=== PATIENT | male | born 1960 | race Caucasian/White ===

== ENCOUNTER 2022-03-22 10:17 | Inpatient (IN) | payer SELFPAY ==
[~2022-03-22] VITALS: Ht 187 cm; Wt 103.4 kg
--- NOTE | 2022-03-22 10:53 | ED Neurological Problem ---
General Chief Complaint: Neurological Problems Stated Complaint: SLURRED SPEACH, LOSS OF BALANCE Nursing Triage Note: PT AMB TO RM 2 PT CO OF R SIDED FACIAL WEAKNESS, SLURRING OF SPEECH. NO WEAKNESS NOTED IN EXT. DENIES NUMBNESS. PT STATES SX STARTED ON Tuesday03/18/22 LAST WEEK. DENIES PAIN. PT STATES HAD COVID APPROX 1 MONTH AGO Source: patient Exam Limitations: no limitations History of Present Illness Date Seen by Provider: Mar 22, 2022 Time Seen by Provider: 10:49 Initial Comments To ER by private vehicle with reports of slurred speech, drooping on the right side of his face, liquids dripping out the right side of his face, unsteady gait drifting to the right side when he walks. This began on , 03/18/2022. The gait abnormality has completely resolved back to normal. However, the slurred speech and drooling of the right side of his mouth persists. His sister had a stroke at the age of 56. He does not smoke or drink or use any drugs. Follows with Dr. Hess. He has hypertension managed with chlorthalidone and lisinopril and he is diabetic managed with Levemir and insulin aspart. Timing/Duration: 1 week Severity: moderate Associated Symptoms: slurred speech, trouble walking; No vision changes, No weakness Allergies and Home Medications Allergies Coded Allergies: No Known Drug Allergies (Unverified , 03/22/22) Patient Home Medication List Home Medication List Reviewed: Yes Review of Systems Review of Systems Constitutional: see HPI Eyes: No Symptoms Reported Ears, Nose, Mouth, Throat: see HPI Respiratory: no symptoms reported Cardiovascular: no symptoms reported Musculoskeletal: no symptoms reported Skin: no symptoms reported Psychiatric/Neurological: See HPI Endocrine: No Symptoms Reported Physical Exam Vital Signs Vital Signs - First Documented 03/22/22 10:42 Temp 35.9 Pulse 93 Resp 11 B/P (MAP) 225/146 (172) Capillary Refill : Less Than 3 Seconds Height, Weight, BMI Height: '" Weight: lbs. oz. kg; 30.00 BMI Method: General Appearance: WD/WN, no apparent distress, other (Alert oriented GCS 15 very pleasant. Quite hypertensive 225/140. Heart rate 90 sinus.) HEENT: PERRL/EOMI, normal ENT inspection, other (Lower half of the right side of his face does have some minor paralysis. Eyebrow movement and ability to wrinkle his eyebrows/forehead is symmetric suggesting supranuclear rather than facial nerve lesion) Respiratory: no respiratory distress, no accessory muscle use Cardiovascular: regular rate, rhythm, no murmur Gastrointestinal: normal bowel sounds, non tender, soft Extremities: normal range of motion, non-tender Neurologic/Psychiatric: alert, normal mood/affect, oriented x 3 Cra[place] Nerves: normal hearing, PERRL, facial asymmetry, facial droop; No gaze palsy Coordination/Gait: normal finger to nose, normal gait Motor/Sensory: no sensory deficit, no pronator drift Skin: normal color, warm/dry Stroke Onset of Symptoms Date of Onset of Symptoms: Mar 18, 2022 Onset of Symptoms: Yes NIH Stroke Scale Assessment Select: Initial Level of Consciousness: 0=Alert (0), Level of Consciousness- Questions: 0=Answers both month/age (0), LOC Commands: 0=Performs both tasks (0), Gaze: Normal (0), Visual Greene: 0=No visual loss (0), Facial Movement (Facial Paresis): 1=Minor paralysis (1), Motor Function-Arms Right: 0=No drift (0), Motor Function-Arms Left: 0=No drift (0), Motor Function-Legs Right: 0=No drift (0), Motor Function-Legs Left: 0=No drift (0), Limb Ataxia: 0=Absent (0), Sensory: 0=Normal:no loss (0), Best Language: 0=No aphasia (0), Dysarthria: 1=Mild to moderate loss (1), Extinction & Inattention: 0=No abnormality (0), Total: 2 Stroke Thrombolytic Exclusion Age 18 or Over: No Acute intenal hemorrhage: No History of CVA: No Uncontrolled Coagulation Defec: No Intracranial Hemorrhage: No Severe Hypertension: Yes GI or Bleed: No Subarachnoid Hemorrhage: No Intracranial Neoplasm/Aneurysm: No Oral Anticoagulants: No Surgery or Trauma: No Puncture of Non-Compressible V: No Recent CPR: No Diabetic Hemorrhagic Retinopat: No Organ Biopsy: No Recent Obstetric Delivery: No Glucose: No Significant Hepatic Dysfunctio: No NIH Stoke Scale >22: No Bacterial Endocarditis: No Pericarditis: No Improving Symptoms: Yes Platelets: No TPA Contraindication: Yes Progress/Results/Core Measures Results/Orders Lab Results Laboratory Tests Test 03/22/22 10:25 03/22/22 12:20 Range/Units White Blood Count 7.9 4.3-11.0 10^3/uL Red Blood Count 5.58 H 4.30-5.52 10^6/uL Hemoglobin 15.5 13.3-17.7 g/dL Hematocrit 46 40-54 % Mean Corpuscular Volume 82 80-99 fL Mean Corpuscular Hemoglobin 28 25-34 pg Mean Corpuscular Hemoglobin Concent 34 32-36 g/dL Red Cell Distribution Width 12.9 10.0-14.5 % Platelet Count 271 130-400 10^3/uL Mean Platelet Volume 11.1 9.0-12.2 fL Immature Granulocyte % (Auto) 0 % Neutrophils (%) (Auto) 58 42-75 % Lymphocytes (%) (Auto) 32 12-44 % Monocytes (%) (Auto) 8 0-12 % Eosinophils (%) (Auto) 1 0-10 % Basophils (%) (Auto) 1 0-10 % Neutrophils # (Auto) 4.6 1.8-7.8 10^3/uL Lymphocytes # (Auto) 2.5 1.0-4.0 10^3/uL Monocytes # (Auto) 0.7 0.0-1.0 10^3/uL Eosinophils # (Auto) 0.1 0.0-0.3 10^3/uL Basophils # (Auto) 0.0 0.0-0.1 10^3/uL Immature Granulocyte # (Auto) 0.0 0.0-0.1 10^3/uL Sodium Level 137 135-145 MMOL/L Potassium Level 3.7 3.6-5.0 MMOL/L Chloride Level 100 98-107 MMOL/L Carbon Dioxide Level 20 L 21-32 MMOL/L Anion Gap 17 H 5-14 MMOL/L Blood Urea Nitrogen 19 H 7-18 MG/DL Creatinine 1.32 H 0.60-1.30 MG/DL Estimat Glomerular Filtration Rate 62 BUN/Creatinine Ratio 14 Glucose Level 385 H 70-105 MG/DL Calcium Level 9.9 8.5-10.1 MG/DL Corrected Calcium 9.6 8.5-10.1 MG/DL Total Bilirubin 0.6 0.1-1.0 MG/DL Aspartate Amino Transf (AST/SGOT) 18 5-34 U/L Alanine Aminotransferase (ALT/SGPT) 20 0-55 U/L Alkaline Phosphatase 76 40-136 U/L Troponin I 0.033 H <0.028 NG/ML Total Protein 7.9 6.4-8.2 GM/DL Albumin 4.4 3.2-4.5 GM/DL Urine Color YELLOW Urine Clarity CLEAR Urine pH 5.5 5-9 Urine Specific [place] 1.020 1.016-1.022 Urine Protein NEGATIVE NEGATIVE Urine Glucose (UA) 3+ H NEGATIVE Urine Ketones NEGATIVE NEGATIVE Urine Nitrite NEGATIVE NEGATIVE Urine Bilirubin NEGATIVE NEGATIVE Urine Urobilinogen 0.2 < = 1.0 MG/DL Urine Leukocyte Esterase NEGATIVE NEGATIVE Urine RBC (Auto) NEGATIVE NEGATIVE Urine RBC 2-5 H /HPF Urine WBC NONE /HPF Urine Crystals NONE /LPF Urine Bacteria NEGATIVE /HPF Urine Casts NONE /LPF Urine Mucus NEGATIVE /LPF Urine Culture Indicated NO My Orders Orders - ELIA BANKS APRN Cbc With Automated Diff (03/22/22 10:46) Protime With Inr (03/22/22 10:46) Partial Thromboplastin Time (03/22/22 10:46) Comprehensive Metabolic Panel (03/22/22 10:46) Fibrin Degradation Products (03/22/22 10:46) Troponin I [place] (03/22/22 10:46) Ua Culture If Indicated (03/22/22 10:46) Chest 1 View, Ap/Pa Only (03/22/22 10:46) Ekg Tracing (03/22/22 10:46) Accucheck Stat ONCE (03/22/22 10:46) Ed Iv/Invasive Line Start (03/22/22 10:46) Ed Iv/Invasive Line Start (03/22/22 10:46) Vital Signs Stroke Patient Q15M (03/22/22 10:46) O2 (03/22/22 10:46) Intake & Output 06,14,22 (03/22/22 10:46) Monitor-Rhythm Ecg Trace Only (03/22/22 10:46) Dysphagia Screening Tool Q10MX1 (03/22/22 10:46) Post Thrombolytic Adminstratio (03/22/22 10:46) Lipid Panel (03/23/22 06:00) Ct Angio Head/Neck (03/22/22 10:46) Metoprolol Tartrate Injection (Lopressor (03/22/22 11:00) Clonidine Tablet (Catapres Tablet) (03/22/22 11:00) Iohexol Injection (Omnipaque 350 Mg/Ml 1 (03/22/22 11:00) Received Contrast (Hold Metformin- Contr (03/22/22 11:00) Ns (Ivpb) (Sodium Chloride 0.9% Ivpb Bag (03/22/22 11:00) Sodium Chloride Flush (Catheter Flush Sy (03/22/22 11:00) Ns Iv 1000 Ml (Sodium Chloride 0.9%) (03/22/22 11:45) Mri Brain W/O Contrast (03/22/22 12:53) Medications Given in ED Current Medications Medications Dose Ordered Sig/Mary Route Start Time Stop Time Status Last Admin Dose Admin Clonidine HCl 0.1 mg ONCE ONCE PO 03/22/22 11:00 03/22/22 11:01 DC 03/22/22 11:05 0.1 MG Iohexol 100 ml ONCE ONCE IV 03/22/22 11:00 03/22/22 11:01 DC 03/22/22 12:14 75 ML Metoprolol Tartrate 5 mg ONCE ONCE IV 03/22/22 11:00 03/22/22 11:01 DC 03/22/22 11:05 5 MG Sodium Chloride 10 ml NEEDED PRN IV 03/22/22 11:00 03/22/22 12:14 10 ML Sodium Chloride 100 ml ONCE ONCE IV 03/22/22 11:00 03/22/22 11:01 DC 03/22/22 12:14 80 ML Vital Signs/I&O 03/22/22 10:42 Temp 35.9 Pulse 93 Resp 11 B/P (MAP) 225/146 (172) Blood Pressure Mean: 172 Departure Communication (Admissions) Family Conversation NAME: [facility] REC#: [id number] PT STATUS: REG ER : 1960 PHYSICIAN: ELIA BANKS APRN ADMIT DATE: 03/22/22/ER Draft Date of Exam:03/22/22 CHEST 1 VIEW, AP/PA ONLY INDICATION: Weakness and slurring of speech in patient with recent Covid infection. Single AP view of the chest is obtained. COMPARISON: No previous study is available for comparison at this time. FINDINGS: Heart size and pulmonary vasculature are within normal limits, and the lungs are clear, bilaterally. IMPRESSION: Unremarkable chest. Dictated on workstation # [id number] Dict: 03/22/22 1241 Trans: 03/22/22 1247 [id number] Interpreted by: MIKE CARD MD Electronically signed by: NAME: [facility] REC#: [id number] PT STATUS: REG ER : 1960 PHYSICIAN: ELIA BANKS LAYER OFF ADMIT DATE: 03/22/22/ER Draft Date of Exam:03/22/22 CT ANGIO HEAD/NECK PROCEDURE: CT angiography of the head and CT angiography of the neck with and without contrast. TECHNIQUE: Contiguous noncontrast images were obtained from the skull base through the vertex. After intravenous contrast administration, helical CT angiography of the neck was performed. Source data was reformatted into 3D MIP projections. Delayed post contrast acquisition was also obtained. Auto Exposure Controls were utilized during the CT exam to meet ALARA standards for radiation dose reduction. INDICATION: Acute onset slurred speech CT HEAD: CT images of the head were obtained. FINDINGS: Ventricles and sulci are within normal limits for size. There is no intracranial hemorrhage identified. There is no abnormal mass effect or shift of midline structures. There are focal lucencies present within the left basal ganglia and thalamus which may be the result of old lacunar infarcts. IMPRESSION: Unremarkable CT of the head. MRI has greater sensitivity for infarct in the acute setting. CTA head and neck: There is a normal three-vessel branching pattern arising from the aortic arch. There is [id number] atherosclerotic calcification at the carotid bifurcation, greater on the left. This results in no significant stenosis or occlusion. There is no intimal abnormality. Both vertebral arteries are patent throughout the neck. Anterior, middle and posterior cerebral arteries are patent without evidence of filling defect. There is no evidence of focal stenosis. No aneurysm or vascular malformation is identified. There may be origin of the left posterior cerebral artery. IMPRESSION: No CTA evidence of great vessel abnormality in the head or neck. There is mild atherosclerotic calcification at the carotid bifurcation, greater on the left. Dictated on workstation # [id number] Dict: 03/22/22 1243 Trans: 03/22/22 1251 [id number] Interpreted by: MIKE CARD MD Electronically signed by: [id number] score of 2, one-point for dysarthria, one-point for facial asymmetry. Not a tPA candidate given timeframe, improving symptoms, severe hypertension. BP at this time 225/143, HR 90 1132-BP 193/113 1307-heart rate 70s sinus. NIH remains the same. Mother at the bedside and agrees with the slurred speech and there is still noticeable right lower half of his face drooping. Current blood pressure 137/98. CT angio fails to demon strate evidence of infarct, significant stenosis or large vessel occlusion. We will get MRI. We will get an echocardiogram. Will admit to Dr. Mancia and consult Dr. Diaz from cardiology. I spoke with him, we will get an echocardiogram and start him on Toprol-XL 100 mg daily. Impression Primary Impression: Hypertensive emergency Additional Impression: CVA (cerebral vascular accident) Disposition: ADMITTED INPATIENT Condition: Stable Admissions Decision to Admit Reason: Admit from ER (General) Decision to Admit/Date: Mar 22, 2022 Time/Decision to Admit Time: 13:11 Departure-Patient Inst. Referrals: [facility]/ (PCP) Primary Care Physician ELIA BANKS APRN Mar 22, 2022 10:53
[2022-03-22 10:58] LABS: BASOPHILS % (AUTO) 1 % (0-10); EOSINOPHILS # (AUTO) 0.1 10^3/uL (0.0-0.3); EOSINOPHILS % (AUTO) 1 % (0-10); HEMATOCRIT 46 % (40-54); HEMOGLOBIN 15.5 g/dL (13.3-17.7); LYMPHOCYTES # (AUTO) 2.5 10^3/uL (1.0-4.0); LYMPHOCYTES % (AUTO) 32 % (12-44); MEAN CORPUSCULAR HEMOGLOBIN 28 pg (25-34); MEAN CORPUSCULAR HGB CONC 34 g/dL (32-36); MEAN CORPUSCULAR VOLUME 82 fL (80-99); MEAN PLATELET VOLUME 11.1 fL (9.0-12.2); MONOCYTES # (AUTO) 0.7 10^3/uL (0.0-1.0); MONOCYTES % (AUTO) 8 % (0-12); NEUTROPHILS # (AUTO) 4.6 10^3/uL (1.8-7.8); NEUTROPHILS % (AUTO) 58 % (42-75); PLATELET COUNT 271 10^3/uL (130-400); WHITE BLOOD COUNT 7.9 10^3/uL (4.3-11.0)
[2022-03-22] MEDS ORDERED: HOLD METFORMIN - RECEIVED CONTRAST 20 ML VIAL IV SCH (11:00)
[2022-03-22] MEDS ORDERED: CATHETER FLUSH 10 ML SYR IV PRN (11:00)
[2022-03-22] MEDS ORDERED: cloNIDine 0.1 MG (CATAPRES) TAB PO ONE (11:00)
[2022-03-22] MEDS ORDERED: NS 100 ML (IVPB) BAG IV ONE (11:00)
[2022-03-22] MEDS ORDERED: IOHEXOL 350 MG/ML 100 ML (OMNIPAQUE 350) VIAL IV ONE (11:00)
[2022-03-22] MEDS ORDERED: meTOprolol 5 MG/5 ML (LOPRESSOR) VIAL IV ONE (11:00)
[2022-03-22 11:05] LABS: ALBUMIN 4.4 GM/DL (3.2-4.5)
[2022-03-22 11:06] LABS: POTASSIUM 3.7 MMOL/L (3.6-5.0)
[2022-03-22 11:07] LABS: CALCIUM 9.9 MG/DL (8.5-10.1)
[2022-03-22 11:08] LABS: TOTAL PROTEIN 7.9 GM/DL (6.4-8.2)
[2022-03-22 11:10] LABS: BILIRUBIN,TOTAL 0.6 MG/DL (0.1-1.0)
[2022-03-22 11:12] LABS: CREATININE SERUM 1.32 MG/DL (0.60-1.30)
[2022-03-22] MEDS ORDERED: NS IV 1000 ML 1,000 ML IV SCH (11:45)
[2022-03-22 12:30] LABS: BILIRUBIN,URINE NEGATIVE (NEGATIVE); CLARITY,URINE CLEAR; COLOR,URINE YELLOW; GLUCOSE, URINE (UA) 3+ (NEGATIVE); KETONES,URINE NEGATIVE (NEGATIVE); LEUKOCYTE ESTERASE ,URINE NEGATIVE (NEGATIVE); NITRITE,URINE NEGATIVE (NEGATIVE); PH,URINE 5.5 (5-9); PROTEIN,URINE NEGATIVE (NEGATIVE)
--- NOTE | 2022-03-22 12:48 | Diagnostic Imaging Report ---
INDICATION: Weakness and slurring of speech in patient with recent Covid infection. Single AP view of the chest is obtained. COMPARISON: No previous study is available for comparison at this time. FINDINGS: Heart size and pulmonary vasculature are within normal limits, and the lungs are clear, bilaterally. IMPRESSION: Unremarkable chest. Dictated by: Dictated on workstation # [id number]
--- NOTE | 2022-03-22 12:51 | Diagnostic Imaging Report ---
PROCEDURE: CT angiography of the head and CT angiography of the neck with and without contrast. TECHNIQUE: Contiguous noncontrast images were obtained from the skull base through the vertex. After intravenous contrast administration, helical CT angiography of the neck was performed. Source data was reformatted into 3D MIP projections. Delayed post contrast acquisition was also obtained. Auto Exposure Controls were utilized during the CT exam to meet ALARA standards for radiation dose reduction. INDICATION: Acute onset slurred speech CT HEAD: CT images of the head were obtained. FINDINGS: Ventricles and sulci are within normal limits for size. There is no intracranial hemorrhage identified. There is no abnormal mass effect or shift of midline structures. There are focal lucencies present within the left basal ganglia and thalamus which may be the result of old lacunar infarcts. IMPRESSION: Unremarkable CT of the head. MRI has greater sensitivity for infarct in the acute setting. CTA head and neck: There is a normal three-vessel branching pattern arising from the aortic arch. There is [id number] atherosclerotic calcification at the carotid bifurcation, greater on the left. This results in no significant stenosis or occlusion. There is no intimal abnormality. Both vertebral arteries are patent throughout the neck. Anterior, middle and posterior cerebral arteries are patent without evidence of filling defect. There is no evidence of focal stenosis. No aneurysm or vascular malformation is identified. There may be origin of the left posterior cerebral artery. IMPRESSION: No CTA evidence of great vessel abnormality in the head or neck. There is mild atherosclerotic calcification at the carotid bifurcation, greater on the left. Dictated by: Dictated on workstation # [id number]
[2022-03-22 12:52] LABS: BACTERIA,URINE NEGATIVE /HPF
[2022-03-22 13:46] LABS: FIBRIN DEGRADATION PRODUCTS 1.04 UG/ML (0.00-0.49); INR 0.9 (0.8-1.4); PROTHROMBIN TIME PATIENT 12.9 SEC (12.2-14.7)
[2022-03-22] MEDS ORDERED: MELATONIN 3 MG TABLET PO PRN (14:00)
[2022-03-22] MEDS ORDERED: diphenhydrAMINE 50 MG/ML INJ (BENADRYL) IVP PRN (14:00)
[2022-03-22] MEDS ORDERED: polyethylene glycoL POWDER 17 GM (MIRALAX) PACK PO PRN (14:00)
[2022-03-22] MEDS ORDERED: ONDANSETRON 4 MG/2 ML (SDV) Z0FRAN IV PRN (14:00)
[2022-03-22] MEDS ORDERED: diphenhydrAMINE 25 MG TAB (BENADRYL) PO PRN (14:00)
[2022-03-22] MEDS ORDERED: morphine INJ 4 MG/ML 1 ML (VIAL/SYRINGE) IV PRN (14:00)
[2022-03-22] MEDS ORDERED: ONDANSETRON 4 MG (ZOFRAN) ORAL DISSOLVE TAB PO PRN (14:00)
[2022-03-22] MEDS ORDERED: BISACODYL 10 MG SUPP (DULCOLAX) PR PRN ×2 (14:00)
[2022-03-22] MEDS ORDERED: cloNIDine 0.1 MG (CATAPRES) TAB PO PRN (14:00)
[2022-03-22] MEDS ORDERED: ANTACID SUSP 30 ML UDC (MYLANTA) PO PRN (14:00)
[2022-03-22] MEDS ORDERED: MILK OF MAGNESIA 400 MG/5 ML 30 ML UDC PO PRN ×2 (14:00)
[2022-03-22] MEDS ORDERED: amLODIPine 5 MG (NORVASC) TAB PO NR (14:00)
[2022-03-22] MEDS ORDERED: CALCIUM CARBONATE 500 MG (TUMS) TAB.CHEW PO PRN (14:00)
[2022-03-22] MEDS ORDERED: LACTULOSE SYRUP 10GM/15ML (ENULOSE) 30ML UDC PO PRN (14:00)
[2022-03-22] MEDS ORDERED: ACETAMINOPHEN 325 MG TABLET PO PRN (14:00)
--- NOTE | 2022-03-22 14:09 | Consultation-Cardiology ---
HPI-Cardiology Cardiology Consultation: Date of Consultation 03/22/22 Time Seen by a Provider: 14:20 Date of Admission 03-22-22 Attending Physician [facility] Admitting Physician Admitting Physician: Rachel Mancia DO Attending Physician: Rachel Mancia DO Consulting Physician Donita Diaz MD HPI: Chief Complaint: Cryptogenic CVA Uncontrolled HTN Mr. Santos is a 62 yr old male admitted to 512 from the ED. He reports last week he was outside working on mower when he developed dizziness, weakness, slurring of his words and some left sided facial droop. He states he felt as though his legs were weak and "not working right". He reports the leg weakness improved after a few days, but the slurring and facial droop persisted. He denies any visual changes. He denies any CP, palpitations, syncope or near syncope. No c/o LE swelling. He reports he did have near syncopal episodes in the past when he was 6 blood pressure pills which was associated with position changes. He states this has improved since he reduced his medications. He reports he has whit coat HTN along with hypertension. He reports he takes chlorthalidone and lisinopril for HTN daily. He reports he smokes marijuana on a daily basis. He reports he previously was a heavy drinker, but has not drank heavily in years. Review of Systems-Cardiology Review of Systems Constitutional: No chills, No fever; lightheadedness Eyes: No vision change Ears/Nose/Throat: No epistaxis, No recent hearing loss Respiratory: As described under HPI Cardiovascular: As described under HPI Gastrointestinal: No constipation, No diarrhea, No nausea, No vomiting Genitourinary: No dysuria Skin: No rash on exposed areas; ulcerations on exposed areas Psychiatric/Neurological: As described under HPI, anxiety Hematologic: No bleeding abnormalities OVQ-Mnmqns-Hakjmw Hx Patient Social History Have you traveled recently?: No Alcohol Use?: No Substance type: Marijuana Pt feels they are or have been: No Past Medical History PMH As described under Assessment. Family Medical History Family Medical History: He reports a sister who had a stroke. Allergies and Home Medications Allergies Coded Allergies: atorvastatin (Verified Adverse Reaction, Unknown, 03/22/22) MUSCLE ACHES Patient Home Medication List Chlorthalidone (Chlorthalidone) 25 Mg Tablet, 25 MG PO DAILY, (Reported) Entered as Reported by: CANDY MULU on 03/22/221513 Last Action: Reviewed Insulin Aspart (Insulin Aspart Flexpen) 100 Unit/Ml (3 Ml) Insuln.pen, 20 UNIT SQ AC, (Reported) Entered as Reported by: CANDY HARDWICK on 03/22/221513 Last Action: Reviewed Insulin Detemir (Levemir Flextouch) 100 Unit/Ml (3 Ml) Insuln.pen, 50 UNIT SQ BI D, (Reported) Entered as Reported by: CANDY HARDWICK on 03/22/221513 Last Action: Reviewed Lisinopril (Lisinopril) 40 Mg Tablet, 20-40 MG PO DAILY PRN for BLOOD PRESSURE, (Reported) Entered as Reported by: CANDY HARDWICK on 03/22/221513 Last Action: Reviewed Sertraline HCl (Sertraline HCl) 100 Mg Tablet, 100 MG PO DAILY, (Reported) Entered as Reported by: CANDY HARDWICK on 03/22/221513 Last Action: Reviewed Sertraline HCl (Sertraline HCl) 100 Mg Tablet, 50 MG PO DAILY PRN for ANXIETY/STRESS, (Reported) Entered as Reported by: CANDY HARDWICK on 03/22/221513 Last Action: Reviewed Physical Exam-Cardiology Physical Exam Vital Signs/I&O 03/23/22 03/23/22 03/23/22 03/23/22 00:00 00:25 01:00 04:00 Pulse 72 64 Resp 17 B/P (MAP) 137/90 (106) Pulse Ox 95 96 O2 Delivery Room Air Room Air Room Air 03/23/22 03/23/22 03/23/22 04:23 07:00 07:53 Temp 36.4 Pulse 64 77 68 Resp 26 B/P (MAP) 153/99 (134) 153/99 (117) Pulse Ox 96 O2 Delivery Room Air 03/23/22 00:00 Intake Total 450 ml Balance 450 ml Capillary Refill : Less Than 3 Seconds Constitutional: AAO x 3, well-developed, well-nourished, other (slightly slurred speech; faint right sided facial droop) HEENT: PERRL, hearing is well preserved, oral hygience is good Neck: No carotid bruit; carotid pulses are 2 + bilaterally Respiratory: No accessory muscle use, No respiratory distress; chest expansion is symmetric, chest is bilaterally symmetric, lungs clear to auscultation Cardiovascular: regular rate-rhythm; No JVD; S1 and S2 Gastrointestinal: No tender; soft, round, audible bowel sounds Extremities: no lower extremity edema bilateral Neurologic/Psychiatric: grossly intact (moves all extremities) Skin: No rash on exposed areas, No ulcerations on exposed areas Data Review Labs Laboratory Tests 03/22/22 10:25: White Blood Count 7.9, Red Blood Count 5.58H, Hemoglobin 15.5, Hematocrit 46, Mean Corpuscular Volume 82, Mean Corpuscular Hemoglobin 28, Mean Corpuscular Hemoglobin Concent 34, Red Cell Distribution Width 12.9, Platelet Count 271, Mean Platelet Volume 11.1, Immature Granulocyte % (Auto) 0, Neutrophils (%) (Auto) 58, Lymphocytes (%) (Auto) 32, Monocytes (%) (Auto) 8, Eosinophils (%) (Auto) 1, Basophils (%) (Auto) 1, Neutrophils # (Auto) 4.6, Lymphocytes # (Auto) 2.5, Monocytes # (Auto) 0.7, Eosinophils # (Auto) 0.1, Basophils # (Auto) 0.0, Immature Granulocyte # (Auto) 0.0, Prothrombin Time 12.9, INR Comment 0.9, Activated Partial Thromboplast Time 31, D-Dimer 1.04H, Sodium Level 137, Potassium Level 3.7, Chloride Level 100, Carbon Dioxide Level 20L, Anion Gap 17H , Blood Urea Nitrogen 19H, Creatinine 1.32H, Estimat Glomerular Filtration Rate 62, BUN/Creatinine Ratio 14, Glucose Level 385H, Calcium Level 9.9, Corrected Calcium 9.6, Total Bilirubin 0.6, Aspartate Amino Transf (AST/SGOT) 18, Alanine Aminotransferase (ALT/SGPT) 20, Alkaline Phosphatase 76, Troponin I 0.033H, Total Protein 7.9, Albumin 4.4 03/22/22 12:20: Urine Color YELLOW, Urine Clarity CLEAR, Urine pH 5.5, Urine Specific [place] 1.020, Urine Protein NEGATIVE, Urine Glucose (UA) 3+H, Urine Ketones NEGATIVE, Urine Nitrite NEGATIVE, Urine Bilirubin NEGATIVE, Urine Urobilinogen 0.2, Urine Leukocyte Esterase NEGATIVE, Urine RBC (Auto) NEGATIVE, Urine RBC 2-5H, Urine WBC NONE, Urine Crystals NONE, Urine Bacteria NEGATIVE, Urine Casts NONE, Urine Mucus NEGATIVE, Urine Culture Indicated NO 03/22/22 17:23: Glucometer 200H 03/22/22 21:24: Glucometer 280H 03/23/22 04:50: White Blood Count 7.0, Red Blood Count 5.16, Hemoglobin 14.5, Hematocrit 43, Mean Corpuscular Volume 84, Mean Corpuscular Hemoglobin 28, Mean Corpuscular Hemoglobin Concent 34, Red Cell Distribution Width 12.9, Platelet Count 229, Mean Platelet Volume 10.8, Immature Granulocyte % (Auto) 0, Neutrophils (%) (Auto) 45, Lymphocytes (%) (Auto) 41, Monocytes (%) (Auto) 10, Eosinophils (%) (Auto) 3, Basophils (%) (Auto) 1, Neutrophils # (Auto) 3.2, Lymphocytes # (Auto) 2.9, Monocytes # (Auto) 0.7, Eosinophils # (Auto) 0.2, Basophils # (Auto) 0.1, Immature Granulocyte # (Auto) 0.0, Sodium Level 138, Potassium Level 3.8, Chloride Level 101, Carbon Dioxide Level 21, Anion Gap 16H, Blood Urea Nitrogen 22H, Creatinine 1.35H, Estimat Glomerular Filtration Rate 60, BUN/Creatinine Ratio 16, Glucose Level 242H, Calcium Level 9.4, Corrected Calcium 9.5, Total Bilirubin 0.4, Aspartate Amino Transf (AST/SGOT) 19, Alanine Aminotransferase (ALT/SGPT) 19, Alkaline Phosphatase 66, Total Protein 7.3, Albumin 3.9, Triglycerides Level 421H, Cholesterol Level 233H, LDL Cholesterol Direct 142H, VLDL Cholesterol 84H, HDL Cholesterol 25L 03/23/22 06:30: Glucometer 249H Radiology NAME: CLINTON SANTOS [facility] REC#: [id number] PT STATUS: REG ER : 1960 PHYSICIAN: ELIA BANKS APRN ADMIT DATE: 03/22/22/ER Draft Date of Exam:03/22/22 CHEST 1 VIEW, AP/PA ONLY INDICATION: Weakness and slurring of speech in patient with recent Covid infection. Single AP view of the chest is obtained. COMPARISON: No previous study is available for comparison at this time. FINDINGS: Heart size and pulmonary vasculature are within normal limits, and the lungs are clear, bilaterally. IMPRESSION: Unremarkable chest. 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 TECHNIQUE: Contiguous noncontrast images were obtained from the skull base through the vertex. After intravenous contrast administration, helical CT angiography of the neck was performed. Source data was reformatted into 3D MIP projections. Delayed post contrast acquisition was also obtained. Auto Exposure Controls were utilized during the CT exam to meet ALARA standards for radiation dose reduction. INDICATION: Acute onset slurred speech CT HEAD: CT images of the head were obtained. FINDINGS: Ventricles and sulci are within normal limits for size. There is no intracranial hemorrhage identified. There is no abnormal mass effect or shift of midline structures. There are focal lucencies present within the left basal ganglia and thalamus which may be the result of old lacunar infarcts. IMPRESSION: Unremarkable CT of the head. MRI has greater sensitivity for infarct in the acute setting. CTA head and neck: There is a normal three-vessel branching pattern arising from the aortic arch. There is [id number]-gfhiymio atherosclerotic calcification at the carotid bifurcation, greater on the left. This results in no significant stenosis or occlusion. There is no intimal abnormality. Both vertebral arteries are patent throughout the neck. Anterior, middle and posterior cerebral arteries are patent without evidence of filling defect. There is no evidence of focal stenosis. No aneurysm or vascular malformation is identified. There may be origin of the left posterior cerebral artery. IMPRESSION: No CTA evidence of great vessel abnormality in the head or neck. There is mild atherosclerotic calcification at the carotid bifurcation, greater on the left. 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 There is mild atherosclerotic calcification at the carotid bifurcation, greater on the left. HTN H/O orthostatic hypotension d/t medications DM 2 - insulin dependant Anxiety Previous h/o heavy ETOH abuse Marijuana usage Discussion and Recomendations Probable CVA with residual right sided facial droop and slurred speech - management per stroke services - MRI of the head pending - Carotid u/s pending Uncontrolled HTN - start BB - adjust as tolerated Echocardiogram to eval structure and function Cessation of marijuana advised Monitor lab closely Further recs will be based on his hospital course We would like to thank Dr. Mancia for this consult Clinical Quality Measures Stroke: Date of last known well: Mar 18, 2022 CHARISMA MCCABE Mar 22, 2022 14:09
--- NOTE | 2022-03-22 14:15 | Diagnostic Imaging Report ---
PROCEDURE: MR imaging of the brain without contrast. TECHNIQUE: Multiplanar, multisequence MR imaging of the brain was performed without contrast. INDICATION: Speech difficulty and balance difficulty. FINDINGS: Diffusion-weighted images do show an area of diffusion restriction in the left medley radiata, consistent with an acute/subacute infarct. No other areas of diffusion restriction are identified. There is an old lacunar infarct in the left thalamus. Ventricles and sulci are within normal limits. There is no midline shift. No acute intra-axial or extra-axial hemorrhage is detected. Corpus callosum is unremarkable. Sella and parasellar structures are unremarkable. IMPRESSION: Acute/subacute infarct in the left medley radiata. There is an old lacunar infarct in the left thalamus. No acute intracranial hemorrhage is detected. Dictated by: Dictated on workstation # [id number]
--- NOTE | 2022-03-22 14:23 | Physical Therapy Progress Note ---
Therapy Progress Note PT observed patient ambulating independently in room and performing bed mobility and transfers independently. All gross motor skills have returned without deficit. No skilled PT indicated. 1 visit ALEJANDRA MARTINEZ PT Mar 22, 2022 14:23
[2022-03-22] MEDS: ENOXAPARIN 40 MG/0.4 ML (LOVENOX) SYR SC SCH (14:24)
[2022-03-22 14:30] VITALS: BP 175/139
--- NOTE | 2022-03-22 14:43 | Occ Therapy Progress Note ---
Therapy Progress Note OT orders received and chart reviewed. OT visited with pt who indicates he is at his PLOF with UE function and ability to complete ADLs. Pt up independently in room with PT, prior to OT arrival, and pt able to don/doff sandals without difficulty. No skilled OT services indicated at this time, as pt is at PLOF. D/C from OT 1, visit D/C 3108 DAVE CALHOUN OT Mar 22, 2022 14:43
[2022-03-22 15:00] VITALS: BP 104/63
[2022-03-22] MEDS ORDERED: SERT-414 PO (15:14)
[2022-03-22] MEDS ORDERED: INSU100I55 SQ (15:14)
[2022-03-22] MEDS ORDERED: CHLO25TA22 PO (15:14)
[2022-03-22] MEDS ORDERED: INSU100I29 SQ (15:14)
[2022-03-22] MEDS ORDERED: LISI40TA9 PO (15:14)
[2022-03-22 15:35] VITALS: BP 104/63
--- NOTE | 2022-03-22 15:43 | History & Physical-Hospitalist ---
KATHY SOTELO 03/22/22 1543: History of Present Illness HPI/Chief Complaint Patient is a 62 year old male with a past medical history of HTN and T2DM that presented to the ER (03-22-2022) with reports of slurred speech, drooping on the right side of his face, and liquids dripping out the right side of his face. He states that he began having slurred speech and uneven gait on 03-18-2022 after work ([employer]). He said he began walking to the right and having drooping of his face on the right side. He also complains of liquids not staying in his mouth. He initially though that the slurred speech was do to his missing teeth. He went fishing and had a fall on 03-19-2022, but just thought he slipped and was not due to his gait abnormality. He said his gait returned to baseline a couple days later, but the facial droop has persisted. He was processed by ER today (03-22-2022) and was subsequently admitted. He was found to have an elevated blood pressure while in the ER, of 225/146 and was given one dose of clonidine. He denies any chest pain, SOB, or N/V. No complaints of pain, fever, chills or headache. He is accompanied by his mother. His sister did have a stroke at the age of 56, mother states sister has antiphospholipid syndrome. At this time patient is in no acute distress and is in good spirits. He states that no other family member has had an incident like this, nor has he had a prior incident like this. Denies tobacco use. Currently smokes marijuana daily, and no recreational drug use. He is followed by Dr. Hess, who manages his HTN and T2DM. Source: patient, family, RN/MD Exam Limitations: no limitations Date Seen 03/22/22 Attending Physician [place]/Replaced By [facility] PCP Admitting Physician: Rachel Cade DO Attending Physician: Rachel Cade DO Referring Physician Date of Admission Mar 22, 2022 at 13:17 Home Medications & Allergies Home Medications Reviewed patient Home Medication Reconciliation performed by pharmacy medication reconciliations manufacturing maintenance technician and/or nursing. Patients Allergies have been reviewed. Allergies Allergies Coded Allergies atorvastatin (Verified Adverse Reaction, Unknown, 03/22/22) MUSCLE ACHES Past Mrnstjs-Txptni-Oqoiqx Hx Patient Social History Employed/Student: employed ([employer]) Tobacco Use?: No Substance use?: Yes Substance type: Marijuana Additional substance use comme: DAILY Alcohol Use?: No (Quit last year, history of heavy Etoh use) Pt feels they are or have been: No Current Status Advance Directives: Yes Communicates: Verbally Primary Language: Zimbabwean Preferred Spoken Language: Zimbabwean Is interpretation needed?: No Implanted or Applied Medical D: None Past Medical History Hypertension Diabetes, Insulin dep Anxiety Family Medical History Cancer (Mother had breast cancer 30 years ago (alive) and HTN, Father of thyroid cancer at 63. ), Other Conditions/Hx (Sister has antiphospholipid syndrome) Review of Systems Constitutional: No chills, No diaphoresis, No fever EENTM: No hearing loss, No eye pain Respiratory: No cough, No short of breath Cardiovascular: No chest pain Gastrointestinal: No abdominal pain, No nausea, No vomiting Genitourinary: No pain Musculoskeletal: No back pain, No joint pain, No joint swelling Skin: No change in color, No change in hair/nails Psychiatric/Neurological: Anxiety; Denies Numbness Physical Exam Physical Exam Vital Signs Vital Signs - First Documented 03/22/22 03/22/22 10:42 14:30 Temp 35.9 Pulse 93 Resp 11 B/P (MAP) 225/146 (172) Pulse Ox 97 O2 Delivery Room Air Capillary Refill : Less Than 3 Seconds Height, Weight, BMI Height: '" Weight: lbs. oz. 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 Assessment/Plan Assessment and Plan CVA with residual right sided dysarthria- Patient reported event transpired on 03-18-2022 MRI () - Acute/subacute infarct in the left medley radiata. There is an old lacunar infarct in the left thalamus. No acute intracranial hemorrhage is detected. Lovenox administered Consult PT, OT, and dysphagia evaluation Hypertensive Emergency/ Elevated Troponin Clonidine and amlodipine administered Cardiology consulted Echocardiogram ordered Monitor and Trend Troponin EKG shows NSR with minimal ST depression in lead III Possible Carotid Stenosis CT angiogram (03-22-2022) showing mild atherosclerotic calcification at the carotid bifurcation, greater on the left. Carotid US ordered-awaiting results Anxiety Continue home medication T2DM Monitor blood glucose Continue home medication use HTN Review home medication Daily Marijuana use Support cessation Clinical Quality Measures Stroke: Date of last known well: Mar 18, 2022 RACHEL CADE 03/23/22 0522: History of Present Illness HPI/Chief Complaint CC: CVA HPI: This is a 62yoWM clinic patient of [facility] who presented to the ER with facial droop and aphasia. Limping gait had resolved as time passed but the symptoms arouse 3 days ago so not a tPA candidate. MRI revealed CVA and old CVA likely from 2 months ago syncopal episode but did not seek attention. Source: patient Exam Limitations: no limitations Time Seen by a Provider: 18:00 Physical Exam Physical Exam General Appearance: No Apparent Distress Respiratory: Lungs Clear, Normal Breath Sounds Cardiovascular: Regular Rate, Rhythm Neurologic/Psychiatric: Alert, Oriented x3, Facial Droop (Right sided), Motor Weakness (No strength deficent noted), Sensory Deficit Assessment/Plan Admission Diagnosis Assessment: CVA w/left sided facial droop Expressive aphasia Old CVA likely form event 1 month ago with syncope HTN HLP DM Plan: Cardiology ECHO Tely Carotid MRI Admission Status: Inpatient Order (span 2 midnights) Reason for Inpatient Admission: CVA Supervisory-Addendum Brief Verification & Attestation Participated in pt care: history, MDM, physical Personally performed: exam, history, MDM, supervision of care Care discussed with: Medical Student Procedures: n/a Results interpretation: Verified all documentation Verification and Attestation of Medical Student E/M Service A medical student performed and documented this service in my presence. I reviewed and verified all information documented by the medical student and made modifications to such information, when appropriate. I personally performed the physical exam and medical decision making. Rachel Cade, Mar 23, 2022,05:22 KATHY SOTELO Mar 22, 2022 15:43 RACHEL CADE DO Mar 23, 2022 05:22
[2022-03-22 16:00] VITALS: BP 133/102
[2022-03-22] MEDS ORDERED: RT-ALBUTEROL SULF 2.5 MG/3 ML PRE-MIX VIAL INH PRN (16:00)
--- NOTE | 2022-03-22 16:40 | Diagnostic Imaging Report ---
PROCEDURE: US carotid duplex, bilateral. TECHNIQUE: Multiple real-time grayscale images were obtained over the carotid arteries in various projections, bilaterally. Additional spectral analysis and color Doppler duplex images were also obtained. INDICATION: CVA. FINDINGS: Real-time imaging shows mild scattered soft and hard plaques within the carotid system. Color Doppler imaging is antegrade throughout. Both vertebral arteries are visualized and symmetrical. Carotid ratios are normal. IMPRESSION: Mild atherosclerotic plaquing with no hemodynamic changes demonstrated. Maximal stenosis estimated less than 30% within the internal carotid arteries. Parameters based on the consensus panel Armas-Scale and Doppler ultrasound criteria published May 2003, Radiology, Volume 229. DOPPLER (peak systolic velocity M/S Right Left CCA .59 .70 ICA Proximal .46 .48 ICA Mid .59 .62 ICA Distal .62 .40 RATIO 1.05 .89 ECA .81 .65 VERT .51 .51 Dictated by: Dictated on workstation # [id number]
--- NOTE | 2022-03-22 16:44 | Consultation-Cardiology ---
HPI-Cardiology Cardiology Consultation: Date of Consultation 03/22/22 Time Seen by a Provider: 16:15 Date of Admission Attending Physician [place] Admitting Physician Admitting Physician: Rachel Mancia DO Attending Physician: Rachel Mancia DO Consulting Physician GRACIE BAKER MD, MA, FACP, FACC, FSCAI, CCDS HPI: Chief Complaint: Reason for Card consult: Cryptogenic CVA, Uncontrolled HTN Mr. Branham is a 62 yr old male admitted to [facility] from the ED. He reports last week he was outside working on mower when he developed dizziness, weakness, slurring of his words and some left sided facial droop. He states he felt as though his legs were weak and "not working right". He reports the leg weakness improved after a few days, but the slurring and facial droop persisted. He denies any visual changes. He denies any CP, palpitations, syncope or near syncope. No c/o LE swelling. He reports he did have near syncopal episodes in the past when he was 6 blood pressure pills which was associated with position changes. He states this has improved since he reduced his medications. He reports he has whit coat HTN along with hypertension. He reports he takes chlorthalidone and lisinopril for HTN daily. He reports he smokes marijuana on a daily basis. He reports he previously was a heavy drinker, but has not drank heavily in years. Review of Systems-Cardiology Review of Systems Constitutional: No chills, No fever; lightheadedness Eyes: No vision change Ears/Nose/Throat: No epistaxis, No recent hearing loss Respiratory: As described under HPI Cardiovascular: As described under HPI Gastrointestinal: No constipation, No diarrhea, No nausea, No vomiting Genitourinary: No dysuria Skin: No rash on exposed areas; ulcerations on exposed areas Psychiatric/Neurological: As described under HPI, anxiety Hematologic: No bleeding abnormalities BBP-Vpoqhq-Riidlu Hx Patient Social History Employed/Student: employed ([employer]) Have you traveled recently?: No Alcohol Use?: No (Quit last year, history of heavy Etoh use) Substance type: Marijuana Pt feels they are or have been: No Past Medical History PMH As described under Assessment. Family Medical History Family Medical History: He reports a sister who had a stroke. Allergies and Home Medications Allergies Coded Allergies: atorvastatin (Verified Adverse Reaction, Unknown, 03/22/22) MUSCLE ACHES Patient Home Medication List Home Medication List Reviewed: Yes Chlorthalidone (Chlorthalidone) 25 Mg Tablet, 25 MG PO DAILY, (Reported) Entered as Reported by: CANDY HARDWICK on 03/22/221513 Last Action: Reviewed Insulin Aspart (Insulin Aspart Flexpen) 100 Unit/Ml (3 Ml) Insuln.pen, 20 UNIT SQ AC, (Reported) Entered as Reported by: CANDY HARDWICK on 03/22/221513 Last Action: Reviewed Insulin Detemir (Levemir Flextouch) 100 Unit/Ml (3 Ml) Insuln.pen, 50 UNIT SQ BID, (Reported) Entered as Reported by: CANDY HARDWICK on 03/22/221513 Last Action: Reviewed Lisinopril (Lisinopril) 40 Mg Tablet, 20-40 MG PO DAILY PRN for BLOOD PRESSURE, (Reported) Entered as Reported by: CANDY HARDWICK on 03/22/221513 Last Action: Reviewed Sertraline HCl (Sertraline HCl) 100 Mg Tablet, 100 MG PO DAILY, (Reported) Entered as Reported by: CANDY HARDWICK on 03/22/221513 Last Action: Reviewed Sertraline HCl (Sertraline HCl) 100 Mg Tablet, 50 MG PO DAILY PRN for ANXIETY/STRESS, (Reported) Entered as Reported by: CANDY HARDWICK on 03/22/221513 Last Action: Reviewed Physical Exam-Cardiology Physical Exam Vital Signs/I&O 03/22/22 03/22/22 03/22/22 03/22/22 10:42 13:42 14:20 14:30 Temp 35.9 Pulse 93 70 78 73 Resp 11 16 27 B/P (MAP) 225/146 (172) 137/98 175/139 (151) Pulse Ox 97 O2 Delivery Room Air 03/22/22 03/22/22 15:00 15:35 Temp 35.9 Pulse 79 79 Resp 26 B/P (MAP) 104/63 (77) Pulse Ox 96 96 O2 Delivery Room Air Capillary Refill : Less Than 3 Seconds Constitutional: AAO x 3, well-developed, well-nourished, other (slightly slurred speech; faint right sided facial droop) HEENT: PERRL, hearing is well preserved, oral hygience is good Neck: No carotid bruit; carotid pulses are 2 + bilaterally Respiratory: No accessory muscle use, No respiratory distress; chest expansion is symmetric, chest is bilaterally symmetric, lungs clear to auscultation Cardiovascular: regular rate-rhythm; No JVD; S1 and S2 Gastrointestinal: No tender; soft, round, audible bowel sounds Extremities: no lower extremity edema bilateral Neurologic/Psychiatric: grossly intact (moves all extremities) Skin: No rash on exposed areas, No ulcerations on exposed areas Data Review Labs Laboratory Tests 03/22/22 10:25: White Blood Count 7.9, Red Blood Count 5.58H, Hemoglobin 15.5, Hematocrit 46, Mean Corpuscular Volume 82, Mean Corpuscular Hemoglobin 28, Mean Corpuscular Hemoglobin Concent 34, Red Cell Distribution Width 12.9, Platelet Count 271, Mean Platelet Volume 11.1, Immature Granulocyte % (Auto) 0, Neutrophils (%) (Auto) 58, Lymphocytes (%) (Auto) 32, Monocytes (%) (Auto) 8, Eosinophils (%) (Auto) 1, Basophils (%) (Auto) 1, Neutrophils # (Auto) 4.6, Lymphocytes # (Auto) 2.5, Monocytes # (Auto) 0.7, Eosinophils # (Auto) 0.1, Basophils # (Auto) 0.0, Immature Granulocyte # (Auto) 0.0, Prothrombin Time 12.9, INR Comment 0.9, A ctivated Partial Thromboplast Time 31, D-Dimer 1.04H, Sodium Level 137, Potassium Level 3.7, Chloride Level 100, Carbon Dioxide Level 20L, Anion Gap 17H , Blood Urea Nitrogen 19H, Creatinine 1.32H, Estimat Glomerular Filtration Rate 62, BUN/Creatinine Ratio 14, Glucose Level 385H, Calcium Level 9.9, Corrected Calcium 9.6, Total Bilirubin 0.6, Aspartate Amino Transf (AST/SGOT) 18, Alanine Aminotransferase (ALT/SGPT) 20, Alkaline Phosphatase 76, Troponin I 0.033H, Total Protein 7.9, Albumin 4.4 03/22/22 12:20: Urine Color YELLOW, Urine Clarity CLEAR, Urine pH 5.5, Urine Specific [place] 1.020, Urine Protein NEGATIVE, Urine Glucose (UA) 3+H, Urine Ketones NEGATIVE, Urine Nitrite NEGATIVE, Urine Bilirubin NEGATIVE, Urine Urobilinogen 0.2, Urine Leukocyte Esterase NEGATIVE, Urine RBC (Auto) NEGATIVE, Urine RBC 2-5H, Urine WBC NONE, Urine Crystals NONE, Urine Bacteria NEGATIVE, Urine Casts NONE, Urine Mucus NEGATIVE, Urine Culture Indicated NO A/P-Cardiology Assessment/Admission Diagnosis 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 There is mild atherosclerotic calcification at the carotid bifurcation, greater on the left. HTN H/O orthostatic hypotension d/t medications DM 2 - insulin dependant Anxiety Previous h/o heavy ETOH abuse Marijuana usage Discussion and Recomendations Probable CVA with residual right sided facial droop and slurred speech - management per stroke services - MRI of the head pending - Carotid u/s pending Uncontrolled HTN - start BB - adjust as tolerated Echocardiogram to eval structure and function Cessation of marijuana advised Monitor lab closely Further recs will be based on his hospital course We would like to thank Dr. Mancia for this consult Clinical Quality Measures Stroke: Date of last known well: Mar 18, 2022 GRACIE BAKER MD FACP FAC CCDS Mar 22, 2022 16:44
[2022-03-22] MEDS: inSUlin ASPART (NovoLOG) 1 UNIT/0.01 ML (CHARGE PER UNIT) SC SCH ×2 (17:28→21:33)
[2022-03-22 20:05] VITALS: BP 116/81
[2022-03-22] MEDS: SENNOSIDES 8.6 MG (SENOKOT) TAB PO SCH (21:00)
[2022-03-22] MEDS: DOCUSATE SODIUM 100 MG (COLACE) CAP PO SCH (21:00)
[2022-03-23 00:25] VITALS: BP 137/90
[2022-03-23 04:23] VITALS: BP 153/99
[2022-03-23 05:03] LABS: BASOPHILS # (AUTO) 0.1 10^3/uL (0.0-0.1); BASOPHILS % (AUTO) 1 % (0-10); EOSINOPHILS # (AUTO) 0.2 10^3/uL (0.0-0.3); EOSINOPHILS % (AUTO) 3 % (0-10); HEMATOCRIT 43 % (40-54); HEMOGLOBIN 14.5 g/dL (13.3-17.7); LYMPHOCYTES # (AUTO) 2.9 10^3/uL (1.0-4.0); LYMPHOCYTES % (AUTO) 41 % (12-44); MEAN CORPUSCULAR HEMOGLOBIN 28 pg (25-34); MEAN CORPUSCULAR HGB CONC 34 g/dL (32-36); MEAN CORPUSCULAR VOLUME 84 fL (80-99); MEAN PLATELET VOLUME 10.8 fL (9.0-12.2); MONOCYTES # (AUTO) 0.7 10^3/uL (0.0-1.0); MONOCYTES % (AUTO) 10 % (0-12); NEUTROPHILS # (AUTO) 3.2 10^3/uL (1.8-7.8); NEUTROPHILS % (AUTO) 45 % (42-75); PLATELET COUNT 229 10^3/uL (130-400)
[2022-03-23 05:13] LABS: ALBUMIN 3.9 GM/DL (3.2-4.5); POTASSIUM 3.8 MMOL/L (3.6-5.0)
[2022-03-23 05:14] LABS: CALCIUM 9.4 MG/DL (8.5-10.1)
[2022-03-23 05:16] LABS: TOTAL PROTEIN 7.3 GM/DL (6.4-8.2)
[2022-03-23 05:17] LABS: BILIRUBIN,TOTAL 0.4 MG/DL (0.1-1.0)
[2022-03-23 05:19] LABS: CREATININE SERUM 1.35 MG/DL (0.60-1.30)
[2022-03-23] MEDS: inSUlin ASPART (NovoLOG) 1 UNIT/0.01 ML (CHARGE PER UNIT) SC SCH ×3 (06:37→16:00)
[2022-03-23 07:53] VITALS: BP 153/99
[2022-03-23] MEDS: SENNOSIDES 8.6 MG (SENOKOT) TAB PO SCH (08:15)
[2022-03-23] MEDS: DOCUSATE SODIUM 100 MG (COLACE) CAP PO SCH (08:15)
--- NOTE | 2022-03-23 08:37 | Progress Note - Cardiology ---
Cardiology SOAP Progress Note Subjective: Lying in bed No c/o CP, SOB, palpitations, n/v/d No c/o LE swelling Feels right sided facial droop is still present, but feels his speech is better today Objective: I&O/Vital Signs 03/23/22 03/23/22 03/23/22 03/23/22 00:00 00:25 01:00 04:00 Pulse 72 64 Resp 17 B/P (MAP) 137/90 (106) Pulse Ox 95 96 O2 Delivery Room Air Room Air Room Air 03/23/22 03/23/22 03/23/22 04:23 07:00 07:53 Temp 36.4 Pulse 64 77 68 Resp 26 B/P (MAP) 153/99 (134) 153/99 (117) Pulse Ox 96 O2 Delivery Room Air 03/23/22 00:00 Intake Total 450 ml Balance 450 ml Constitutional: AAO x 3, well-developed, well-nourished, other (slightly slurred speech; faint right sided facial droop) Respiratory: No accessory muscle use, No respiratory distress; chest expansion is symmetric, chest is bilaterally symmetric, lungs clear to auscultation Cardiovascular: regular rate-rhythm; No JVD; S1 and S2 Gastrointestional: No tender; soft, round, audible bowel sounds Extremities: no lower extremity edema bilateral Neurologic/Psychiatric: grossly intact (moves all extremities) Skin: No rash on exposed areas, No ulcerations on exposed areas Results/Procedures: Labs Laboratory Tests 03/22/22 10:25: White Blood Count 7.9, Red Blood Count 5.58H, Hemoglobin 15.5, Hematocrit 46, Mean Corpuscular Volume 82, Mean Corpuscular Hemoglobin 28, Mean Corpuscular Hemoglobin Concent 34, Red Cell Distribution Width 12.9, Platelet Count 271, Mean Platelet Volume 11.1, Immature Granulocyte % (Auto) 0, Neutrophils (%) (Auto) 58, Lymphocytes (%) (Auto) 32, Monocytes (%) (Auto) 8, Eosinophils (%) (Auto) 1, Basophils (%) (Auto) 1, Neutrophils # (Auto) 4.6, Lymphocytes # (Auto) 2.5, Monocytes # (Auto) 0.7, Eosinophils # (Auto) 0.1, Basophils # (Auto) 0.0, Immature Granulocyte # (Auto) 0.0, Prothrombin Time 12.9, INR Comment 0.9, Activated Partial Thromboplast Time 31, D-Dimer 1.04H, Sodium Level 137, Potassium Level 3.7, Chloride Level 100, Carbon Dioxide Level 20L, Anion Gap 17H , Blood Urea Nitrogen 19H, Creatinine 1.32H, Estimat Glomerular Filtration Rate 62, BUN/Creatinine Ratio 14, Glucose Level 385H, Calcium Level 9.9, Corrected Calcium 9.6, Total Bilirubin 0.6, Aspartate Amino Transf (AST/SGOT) 18, Alanine Aminotransferase (ALT/SGPT) 20, Alkaline Phosphatase 76, Troponin I 0.033H, Total Protein 7.9, Albumin 4.4 03/22/22 12:20: Urine Color YELLOW, Urine Clarity CLEAR, Urine pH 5.5, Urine Specific [place] 1.020, Urine Protein NEGATIVE, Urine Glucose (UA) 3+H, Urine Ketones NEGATIVE, Urine Nitrite NEGATIVE, Urine Bilirubin NEGATIVE, Urine Urobilinogen 0.2, Urine Leukocyte Esterase NEGATIVE, Urine RBC (Auto) NEGATIVE, Urine RBC 2-5H, Urine WBC NONE, Urine Crystals NONE, Urine Bacteria NEGATIVE, Urine Casts NONE, Urine Mucus NEGATIVE, Urine Culture Indicated NO 03/22/22 17:23: Glucometer 200H 03/22/22 21:24: Glucometer 280H 03/23/22 04:50: White Blood Count 7.0, Red Blood Count 5.16, Hemoglobin 14.5, Hematocrit 43, Mean Corpuscular Volume 84, Mean Corpuscular Hemoglobin 28, Mean Corpuscular Hemoglobin Concent 34, Red Cell Distribution Width 12.9, Platelet Count 229, Mean Platelet Volume 10.8, Immature Granulocyte % (Auto) 0, Neutrophils (%) (Auto) 45, Lymphocytes (%) (Auto) 41, Monocytes (%) (Auto) 10, Eosinophils (%) (Auto) 3, Basophils (%) (Auto) 1, Neutrophils # (Auto) 3.2, Lymphocytes # (Auto) 2.9, Monocytes # (Auto) 0.7, Eosinophils # (Auto) 0.2, Basophils # (Auto) 0.1, Immature Granulocyte # (Auto) 0.0, Sodium Level 138, Potassium Level 3.8, Chloride Level 101, Carbon Dioxide Level 21, Anion Gap 16H, Blood Urea Nitrogen 22H, Creatinine 1.35H, Estimat Glomerular Filtration Rate 60, BUN/Creatinine Ratio 16, Glucose Level 242H, Calcium Level 9.4, Corrected Calcium 9.5, Total Bilirubin 0.4, Aspartate Amino Transf (AST/SGOT) 19, Alanine Aminotransferase (ALT/SGPT) 19, Alkaline Phosphatase 66, Total Protein 7.3, Albumin 3.9, Triglycerides Level 421H, Cholesterol Level 233H, LDL Cholesterol Direct 142H, VLDL Cholesterol 84H, HDL Cholesterol 25L 03/23/22 06:30: Glucometer 249H Procedures NAME: CLINTON SANTOS [facility] REC#: [id number] PT STATUS: ADM Elkin : 1960 PHYSICIAN: ELIA BANKS APRN ADMIT DATE: 03/22/22/[facility] Signed Date of Exam:03/22/22 MRI BRAIN W/O CONTRAST PROCEDURE: MR imaging of the brain without contrast. TECHNIQUE: Multiplanar, multisequence MR imaging of the brain was performed without contrast. INDICATION: Speech difficulty and balance difficulty. FINDINGS: Diffusion-weighted images do show an area of diffusion restriction in the left medley radiata, consistent with an acute/subacute infarct. No other areas of diffusion restriction are identified. There is an old lacunar infarct in the left thalamus. Ventricles and sulci are within normal limits. There is no midline shift. No acute intra-axial or extra-axial hemorrhage is detected. Corpus callosum is unremarkable. Sella and parasellar structures are unremarkable. IMPRESSION: Acute/subacute infarct in the left medley radiata. There is an old lacunar infarct in the left thalamus. No acute intracranial hemorrhage is detected. Dictated by: Dictated on workstation # [id number] Dict: 03/22/22 1402 Trans: 03/22/22 1532 [id number] Interpreted by: BASIM NDIAYE MD Electronically signed by: BASIM NDIAYE MD 03/22/22 1532 NAME: CLINTON SANTOS [facility] REC#: [id number] PT STATUS: ADM Elkin : 1960 PHYSICIAN: EVERETT CADE DO ADMIT DATE: 03/22/22/[facility] Signed Date of Exam:03/22/22 US CAROTID CORNELIA COMPLETE [id number] PROCEDURE: US carotid duplex, bilateral. TECHNIQUE: Multiple real-time grayscale images were obtained over the carotid arteries in various projections, bilaterally. Additional spectral analysis and color Doppler duplex images were also obtained. INDICATION: CVA. FINDINGS: Real-time imaging shows mild scattered soft and hard plaques within the carotid system. Color Doppler imaging is antegrade throughout. Both vertebral arteries are visualized and symmetrical. Carotid ratios are normal. IMPRESSION: Mild atherosclerotic plaquing with no hemodynamic changes demonstrated. Maximal stenosis estimated less than 30% within the internal carotid arteries. Parameters based on the consensus panel Armas-Scale and Doppler ultrasound criteria published May 2003, Radiology, Volume 229. 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 There is mild atherosclerotic calcification at the carotid bifurcation, greater on the left. - MRI of the head on 03-22-22: Acute/subacute infarct in the left medley radiata. There is an old lacunar infarct in the left thalamus. No acute intracranial hemorrhage is detected. - Carotid u/s of 03-22-22: Mild atherosclerotic plaquing with no hemodynamic changes demonstrated. Maximal stenosis estimated less than 30% within the internal carotid arteries. 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 He is agreeable to implant. Uncontrolled HTN - start BB - adjust as tolerated Cessation of marijuana advised Monitor lab closely I have spoke in detail plan of care including ILR implant with him and his daughter. They are agreeable. Clinical Quality Measures Stroke: Date of last known well: Mar 18, 2022 CHARISMA MCCABE Mar 23, 2022 08:37
[2022-03-23] MEDS ORDERED: amLODIPine 5 MG (NORVASC) TAB PO SCH (09:00)
[2022-03-23] MEDS ORDERED: ASPIRIN 325 MG (5 GR) TABLET PO SCH (09:00)
[2022-03-23] MEDS ORDERED: DOCUSATE SODIUM 100 MG (COLACE) CAP PO SCH (09:00)
[2022-03-23] MEDS ORDERED: meTOprolol SUCCINATE 100 MG (TOPROL XL) TAB PO SCH (09:00)
[2022-03-23] MEDS ORDERED: PRAV40TA2 PO (09:15)
[2022-03-23] MEDS ORDERED: AMLO-250 PO (09:56)
[2022-03-23] MEDS ORDERED: MTP100TCR PO (09:56)
[2022-03-23] MEDS ORDERED: ASPI-1238 PO (09:56)
--- NOTE | 2022-03-23 11:04 | Progress Note ---
KATHY SOTELO 03/23/22 1104: Progress Note Patient is a 62 year old male with a past medical history of HTN and T2DM that presented to the ER (03-22-2022) with reports of slurred speech, drooping on the right side of his face, and liquids dripping out the right side of his face. He states that he began having slurred speech and uneven gait on 03-18-2022 after work ([employer]). He said he began drifting to the right while walking and having drooping of his face on the right side. He also complains of liquids not staying in his mouth. He initially though that the slurred speech was do to his missing teeth. He went fishing and had a fall on 03-19-2022, but just thought he slipped and was not due to his gait abnormality. He said his gait returned to baseline a couple days later, but the facial droop has persisted. He was processed by ER today (03-22-2022) and was subsequently admitted. He was found to have an elevated blood pressure while in the ER, of 225/146 and was given one dose of clonidine. He denies any chest pain, SOB, or N/V. No complaints of pain, fever, chills or headache. He is accompanied by his mother. His sister did have a stroke at the age of 56, mother states sister has antiphospholipid syndrome. Patient was then taken for a chest x-ray, CTA of head, echocardiogram, carotid US, and MRI head on 03-22-2022. MRI showed an acute and prior infarct without hemorrhage. Carotid US showed atherosclerotic calcification of 30% stenosis at max. Echocardiogram showed grade 1 abnormal LV relaxation and LA was mildly dilated. Blood pressure was managed throughout stay. He was placed on a BB and amlodipine which lowered his systolic readings to between 120-160. His T2DM was also managed tightly throughout stay using sliding insulin scale. Physical and occupational therapy were consulted during stay but not warranted at this time. At this time patient is in no acute distress and is in good spirits. He says his gait is back to baseline at this time, and his facial droop is slowly improving. Patient is being prescribed pravastatin for his hyperlipidemia, he has been on others prior but he struggled with myopathies. Told by cardiology to continue with daily aspirin. Patient is having discussion with cardiology regarding possible implant of loop recorder. He denies current tobacco use. Currently smokes marijuana daily, and no recreational drug use. He is followed by Dr. Hess, who manages his HTN and T2DM. RACHEL CADE DO 03/23/222044: Supervisory-Addendum Brief Verification & Attestation Participated in pt care: history, MDM, physical Personally performed: exam, history, MDM, supervision of care Care discussed with: Medical Student Procedures: n/a Results interpretation: Verified all documentation Verification and Attestation of Medical Student E/M Service A medical student performed and documented this service in my presence. I reviewed and verified all information documented by the medical student and made modifications to such information, when appropriate. I personally performed the physical exam and medical decision making. Rachel Cade, Mar 23, 2022,20:45 KATHY SOTELO Mar 23, 2022 11:04 RACHEL CADE DO Mar 23, 2022 20:45
--- NOTE | 2022-03-23 11:11 | ST Cognitive Linguistic Eval ---
Speech Evaluation-General Medical Diagnosis Stroke Onset Date: Mar 22, 2022 Therapy Diagnosis Therapy Diagnosis: Mild Dysarthria Precautions Precautions: Fall, Aspiration Precautions/Isolations: Fall Prevention, Standard Precautions Referral Referring Physician: Dr. Hess Reason for Referral: Evaluation/Treatment Medical History Current History The patient is a 62 year old male with a past medical history of HTN and T2DM, who presented to the ER (03-22-2022) with reports of slurred speech, drooping on the right side of his face, and liquids dripping out the right side of his face. 03/22/22: Brain MRI: IMPRESSION: Acute/subacute infarct in the left medley radiata. There is an old lacunar infarct in the left thalamus. No acute intracranial hemorrhage is detected. Reviewed History: Yes Speech PLF-Current Status Prior Level of Function The patient denied prior challenges with his speech, language, or cognition. Subjective The patient was seated upright in bed, awake and alert upon entrance to his room by the clinician. The patient greeted the clinician appropriately and was agreeable to participation in the cognitive linguistic assessment. The patient has his daughter present at bedside. Language Eval: Auditory Comprehends Simple Yes/No Ques: Functional Indent/Objects Multiple [place]: Functional Follows 1-Step Commands: Functional Follows General Conversations: Functional Language Eval: Verbal Language Completes Spontaneous Greeting: Functional Produces Auto, Serial Info: Functional Imitates Simple Words/Phrases: Functional Word Finding: Mild Requests Basic Needs: Functional States Basic Personal Info: Functional Language Evaluation: Reading Follows Simple Written Direct: Functional Cognitive Patient Orientation The patient was independently oriented to self, location, month, day of the week, date, and year. Objective Cognitive Domain Attention: WNL Visuospatial Skills: WNL Composite Severity Rating: WNL Objective Oral Motor/Speech Production The patient demonstrates a slight right facial droop at baseline, with decreased right labial retraction, protrusion, and strength. Lingual protrusion is at midline. Natural dentition is present. The patient displays minimal to mild dy sarthria characterized by decreased articulatory precision. The patient remains 100% intelligible in known and unknown contexts. Impression The patient displays minimal to mild dysarthria. Regardless of the present dysarthria, the patient remains 100% intelligible in known and unknown contexts. The patient was encouraged to over-articulate phonemes during verbalization and keep a journal with difficult words/phonemes to practice. If the patient's speech does not return to baseline, consider outpatient speech pathology services. Speech-Plan Treatment Plan Speech Therapy Treatment Plan: Discontinue ST Treatment Duration: Mar 23, 2022 Frequency: 1 time per week Estimated Hrs Per Day: .5 hour per day Rehab Potential: Good Safety Risks/Education Teaching Recipient: Patient, Family Teaching Methods: Discussion Response to Teaching: Verbalize Understanding Education Topics Provided: Results, Recommendations, Plan of Care Time Speech Therapy Time In: 10:30 Speech Therapy Time Out: 11:00 Total Billed Time: 30 Billed Treatment Time 1, BRANDY BAI [facility]IZAB[facility] ST Mar 23, 2022 11:11
[2022-03-23 11:28] VITALS: BP 207/99
[2022-03-23] MEDS ORDERED: LIDOCAINE 1% INJ 20 ML VIAL ONE (11:36)
--- NOTE | 2022-03-23 12:22 | Progress Note - Cardiology ---
Cardiology SOAP Progress Note Subjective: No focal weakness today Speech impairment has resolved No n/v/d No cp or palp or syncope or shortness of breath No swelling Objective: I&O/Vital Signs 03/23/22 03/23/22 03/23/22 03/23/22 00:25 01:00 04:00 04:23 Pulse 72 64 64 Resp 17 B/P (MAP) 137/90 (106) 153/99 (134) Pulse Ox 96 O2 Delivery Room Air Room Air Room Air 03/23/22 03/23/22 03/23/22 03/23/22 07:00 07:53 08:00 11:28 Temp 36.4 36.3 Pulse 77 68 55 Resp 26 18 B/P (MAP) 153/99 (117) 207/99 (135) Pulse Ox 96 95 96 O2 Delivery Room Air 03/23/22 00:00 Intake Total 450 ml Balance 450 ml Constitutional: AAO x 3, well-developed, well-nourished, other (slightly slurred speech; faint right sided facial droop) Respiratory: No accessory muscle use, No respiratory distress; chest expansion is symmetric, chest is bilaterally symmetric, lungs clear to auscultation Cardiovascular: regular rate-rhythm; No JVD; S1 and S2 Gastrointestional: No tender; soft, round, audible bowel sounds Extremities: no lower extremity edema bilateral Neurologic/Psychiatric: grossly intact (moves all extremities) Skin: No rash on exposed areas, No ulcerations on exposed areas Results/Procedures: Labs Laboratory Tests 03/22/22 12:20: Urine Color YELLOW, Urine Clarity CLEAR, Urine pH 5.5, Urine Specific [place] 1.020, Urine Protein NEGATIVE, Urine Glucose (UA) 3+H, Urine Ketones NEGATIVE, Urine Nitrite NEGATIVE, Urine Bilirubin NEGATIVE, Urine Urobilinogen 0.2, Urine Leukocyte Esterase NEGATIVE, Urine RBC (Auto) NEGATIVE, Urine RBC 2-5H, Urine WBC NONE, Urine Crystals NONE, Urine Bacteria NEGATIVE, Urine Casts NONE, Urine Mucus NEGATIVE, Urine Culture Indicated NO 03/22/22 17:23: Glucometer 200H 03/22/22 21:24: Glucometer 280H 03/23/22 04:50: White Blood Count 7.0, Red Blood Count 5.16, Hemoglobin 14.5, Hematocrit 43, Mean Corpuscular Volume 84, Mean Corpuscular Hemoglobin 28, Mean Corpuscular Hemoglobin Concent 34, Red Cell Distribution Width 12.9, Platelet Count 229, Mean Platelet Volume 10.8, Immature Granulocyte % (Auto) 0, Neutrophils (%) (Auto) 45, Lymphocytes (%) (Auto) 41, Monocytes (%) (Auto) 10, Eosinophils (%) (Auto) 3, Basophils (%) (Auto) 1, Neutrophils # (Auto) 3.2, Lymphocytes # (Auto) 2.9, Monocytes # (Auto) 0.7, Eosinophils # (Auto) 0.2, Basophils # (Auto) 0.1, Immature Granulocyte # (Auto) 0.0, Sodium Level 138, Potassium Level 3.8, Chloride Level 101, Carbon Dioxide Level 21, Anion Gap 16H, Blood Urea Nitrogen 22H, Creatinine 1.35H, Estimat Glomerular Filtration Rate 60, BUN/Creatinine Ratio 16, Glucose Level 242H, Calcium Level 9.4, Corrected Calcium 9.5, Total Bilirubin 0.4, Aspartate Amino Transf (AST/SGOT) 19, Alanine Aminotransferase (ALT/SGPT) 19, Alkaline Phosphatase 66, Total Protein 7.3, Albumin 3.9, Triglycerides Level 421H, Cholesterol Level 233H, LDL Cholesterol Direct 142H, VLDL Cholesterol 84H, HDL Cholesterol 25L 03/23/22 06:30: Glucometer 249H 03/23/22 10:51: Glucometer 273H Laboratory Tests 03/22/22 10:25 03/23/22 04:50 A/P: Assessment: 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 There is mild atherosclerotic calcification at the carotid bifurcation, greater on the left. - MRI of the head on 03-22-22: Acute/subacute infarct in the left medley radiata. There is an old lacunar infarct in the left thalamus. No acute intracranial hemorrhage is detected. - Carotid u/s of 03-22-22: Mild atherosclerotic plaquing with no hemodynamic changes demonstrated. Maximal stenosis estimated less than 30% within the internal carotid arteries. - s/p ILR on 03-23-22 HTN H/O orthostatic hypotension d/t medications DM 2 - insulin dependant Anxiety Previous h/o heavy ETOH abuse Marijuana usage Plan: * ILR recommended, given thromboembolic stroke without an established etiology. ILR implanted after discussing rationale, pros, cons, and alternatives, and after he provided informed consent * Dr Mancia managing stroke * Continue bb for hypertension, adjust as tolerated Clinical Quality Measures Stroke: Date of last known well: Mar 18, 2022 GRACIE BAKER MD FACP FAC CCDS Mar 23, 2022 12:22
[2022-03-23] MEDS: ENOXAPARIN 40 MG/0.4 ML (LOVENOX) SYR SC SCH (14:00)
[2022-03-23 16:00] VITALS: BP 144/81
--- NOTE | 2022-03-23 17:41 | Discharge Summary ---
Discharge Summary Hospital Course Was the Problem List Reviewed?: Yes Problems/Dx: (1) CVA (cerebral vascular accident) Status: Acute (2) Hypertensive emergency Status: Acute Hospital Course Date of Admission: Mar 22, 2022 at 13:17 Admission Diagnosis : Family Physician/Provider: Date of Discharge: 03/23/22 Discharge Diagnosis: CVA Hospital Course: Patient is a 62 year old male with a past medical history of HTN and T2DM that presented to the ER (03-22-2022) with reports of slurred speech, drooping on the right side of his face, and liquids dripping out the right side of his face. He states that he began having slurred speech and uneven gait on 03-18-2022 after work ([employer]). He said he began drifting to the right while walking and having drooping of his face on the right side. He also complains of liquids not staying in his mouth. He initially though that the slurred speech was do to his missing teeth. He went fishing and had a fall on 03-19-2022, but just thought he slipped and was not due to his gait abnormality. He said his gait returned to b aseline a couple days later, but the facial droop has persisted. He was processed by ER today (03-22-2022) and was subsequently admitted. He was found to have an elevated blood pressure while in the ER, of 225/146 and was given one dose of clonidine. He denies any chest pain, SOB, or N/V. No complaints of pain, fever, chills or headache. He is accompanied by his mother. His sister did have a stroke at the age of 56, mother states sister has antiphospholipid syndrome. Patient was then taken for a chest x-ray, CTA of head, echocardiogram, carotid US, and MRI head on 03-22-2022. MRI showed an acute and prior infarct without hemorrhage. Carotid US showed atherosclerotic calcification of 30% stenosis at max. Echocardiogram showed grade 1 abnormal LV relaxation and LA was mildly dilated. Blood pressure was managed throughout stay. He was placed on a BB and amlodipine which lowered his systolic readings to between 120-160. His T2DM was also managed tightly throughout stay using sliding insulin scale. Physical and occupational therapy were consulted during stay but not warranted at this time. At this time patient is in no acute distress and is in good spirits. He says his gait is back to baseline at this time, and his facial droop is slowly improving. Patient is being prescribed pravastatin for his hyperlipidemia, he has been on others prior but he struggled with myopathies. Told by cardiology to continue with daily aspirin. Patient is having discussion with cardiology regarding possible implant of loop recorder. He denies current tobacco use. Currently smokes marijuana daily, and no recreational drug use. He is followed by Dr. Hess, who manages his HTN and T2DM. Labs and Pending Lab Test: Laboratory Tests 03/22/22 21:24: Glucometer 280H 03/23/22 04:50: White Blood Count 7.0, Red Blood Count 5.16, Hemoglobin 14.5, Hematocrit 43, Mean Corpuscular Volume 84, Mean Corpuscular Hemoglobin 28, Mean Corpuscular Hemoglobin Concent 34, Red Cell Distribution Width 12.9, Platelet Count 229, Mean Platelet Volume 10.8, Immature Granulocyte % (Auto) 0, Neutrophils (%) (Auto) 45, Lymphocytes (%) (Auto) 41, Monocytes (%) (Auto) 10, Eosinophils (%) (Auto) 3, Basophils (%) (Auto) 1, Neutrophils # (Auto) 3.2, Lymphocytes # (Auto) 2.9, Monocytes # (Auto) 0.7, Eosinophils # (Auto) 0.2, Basophils # (Auto) 0.1, Immature Granulocyte # (Auto) 0.0, Sodium Level 138, Potassium Level 3.8, Chloride Level 101, Carbon Dioxide Level 21, Anion Gap 16H, Blood Urea Nitrogen 22H, Creatinine 1.35H, Estimat Glomerular Filtration Rate 60, BUN/Creatinine Ratio 16, Glucose Level 242H, Calcium Level 9.4, Corrected Calcium 9.5, Total Bilirubin 0.4, Aspartate Amino Transf (AST/SGOT) 19, Alanine Aminotransferase (ALT/SGPT) 19, Alkaline Phosphatase 66, Total Protein 7.3, Albumin 3.9, Triglycerides Level 421H, Cholesterol Level 233H, LDL Cholesterol Direct 142H, VLDL Cholesterol 84H, HDL Cholesterol 25L 03/23/22 06:30: Glucometer 249H 03/23/22 10:51: Glucometer 273H Home Meds Active Aspirin EC (Aspirin) 81 Mg Tablet. 81 Mg PO DAILY Amlodipine Besylate 5 Mg Tablet 5 Mg PO DAILY Metoprolol Succinate 100 Mg Tab.er.24h 100 Mg PO DAILY Pravastatin Sodium 40 Mg Tablet 40 Mg PO DAILY Reported Lisinopril 40 Mg Tablet 20-40 Mg PO DAILY PRN TAKES TO 1 (40MG) TABS NEEDED Chlorthalidone 25 Mg Tablet 25 Mg PO DAILY Insulin Aspart Flexpen (Insulin Aspart) 100 Unit/Ml (3 Ml) Insuln.pen 20 Unit SQ AC LAST FILLED 10-28-2021 #15 PENS/75 DAY SUPPLY Levemir Flextouch (Insulin Detemir) 100 Unit/Ml (3 Ml) Insuln.pen 50 Unit SQ BID Sertraline HCl 100 Mg Tablet 50 Mg PO DAILY PRN Sertraline HCl 100 Mg Tablet 100 Mg PO DAILY Assessment/Pt Instructions PCP 1 week Discharge Planning: <30 minutes discharge planning Discharge Instructions Discharge Diet: No Restrictions Activity as Tolerated: Yes Discharge Physical Examination Vital Signs Vital Signs Date Time Temp Pulse Resp B/P (MAP) Pulse Ox O2 Delivery O2 Flow Rate FiO2 03/23/22 16:00 100 Room Air 03/23/22 16:00 36.6 03/23/22 16:00 64 20 144/81 (102) General Appearance: No Apparent Distress, WD/WN, Chronically ill Allergies: Coded Allergies: atorvastatin (Verified Adverse Reaction, Unknown, 03/22/22) MUSCLE ACHES Discharge Summary Date of Admission Mar 22, 2022 at 13:17 Date of Discharge Discharge Date: Mar 23, 2022 Admission Diagnosis Assessment: CVA w/left sided facial droop Expressive aphasia Old CVA likely form event 1 month ago with syncope HTN HLP DM Plan: Cardiology ECHO Tely Carotid MRI Clinical Quality Measures Stroke: Date of last known well: Mar 18, 2022 EVERETT CADE DO Mar 23, 2022 17:41
== END 2022-03-23 18:30 | disposition home or self-care (01) | DRG 65 ==
LOC: EDUNIT# 10:17 → ER 10:20 → CSD 13:17 → UNDOADMOB 13:17 → UNDODISOB 03-23 18:30
PROVIDERS: ADMIT Internal Medicine; ATTEND Internal Medicine
DX: I63.9 Cerebral infarction, unspecified (principal); I16.1 Hypertensive emergency; R47.01 Aphasia; R29.810 Facial weakness; I10 Essential (primary) hypertension; E11.9 Type 2 diabetes mellitus without complications; R29.702 NIHSS score 2; F12.90 Cannabis use, unspecified, uncomplicated; F41.9 Anxiety disorder, unspecified; E78.5 Hyperlipidemia, unspecified; Z79.4 Long term (current) use of insulin; Z88.8 Allergy status to other drugs, medicaments and biological substances
CPT/HCPCS: 33285; 36415; 70496; 70498; 70551; 71045; 80053; 80061; 81000; 82947; 84484; 85025; 85379; 85610; 85730; 87081; 93005; 93041; 93306; 93880; 94664; 96372